=== PATIENT | female | born 1990 | race Caucasian/White ===

== ENCOUNTER 2018-01-21 10:26 | Outpatient (CLI) | payer MEDICAID ==
[~2018-01-21] VITALS: Ht 165.1 cm; Wt 101.4 kg
[~2018-01-21 10:26] MED LIST: CEPHALEXIN500 M1 PO; MACROBID 1100 MG/CAP PO; MOTRIN 600600 MG/TAB PO; NORCO 325 MG-51 TAB PO; PRENATAL1 TA1 PO; PYRIDIUM200 M1 PO; SENOKOT S 50 MG1 TAB PO
[2018-01-21 10:37] VITALS: BP 118/74; PULSE 76; TEMP 97.9
[2018-01-21 10:40] VITALS: BP 118/74; PULSE 76; TEMP 97.9
[2018-01-21] MEDS ORDERED: PRENATAL1 TA7 PO (10:40)
[2018-01-21] MEDS ORDERED: PROFERRIN ES12 MG PO (10:40)
[2018-01-21 11:40] VITALS: BP 112/72; PULSE 86
== END 2018-01-21 12:00 | disposition home or self-care (01) ==
LOC: LDRO 10:26
DX: O62.9 Abnormality of forces of labor, unspecified (principal); Z3A.39 39 weeks gestation of pregnancy

== ENCOUNTER 2018-01-29 06:23 | Inpatient (IN) | payer MEDICAID ==
[~2018-01-29] VITALS: Ht 167.6 cm; Wt 100.9 kg
[2018-01-29] VITALS (25 sets, daily range): BP systolic 96–139; BP diastolic 55–81; PULSE 54–95; TEMP 97.7–98.6
[~2018-01-29 06:23] MED LIST changes: +PRENATAL1 TA7 PO; +PROFERRIN ES12 MG PO
[2018-01-29 07:55] LABS: BASO % 0.3 % (0.0-2.0); EOS # 0.1 (0.0-0.7); GRAN # 6.8 (1.4-6.5); HEMOGLOBIN 11.3 g/dl (12.5-16.0); LYMPH # 2.7 (1.2-3.4); LYMPH % 25.8 % (20.0-51.0); MEAN CELL VOLUME 85 fl (80.0-100.0); MEAN CORPUSCULAR HEMOGLOBIN 28 pg (27.0-31.0); MEAN CORPUSCULAR HGB CONC 33 g/dl (33.0-37.0); MEAN PLATELET VOLUME 10.6 fl (7.4-10.4); MONO # 0.6 (0.1-0.6); MONO % 6.2 % (1.7-9.3); PLATELET COUNT 252 K/mm3 (130-400); RED BLOOD COUNT 4.02 M/mm3 (4.10-5.30); REDCELL DISTRIBUTION WIDTH-CV 12.9 % (11.5-14.5)
[2018-01-30 01:06] VITALS: BP 114/76; PULSE 69; TEMP 97.6
[2018-01-30 05:39] VITALS: BP 109/61; PULSE 63; TEMP 97.4
[2018-01-30 07:36] VITALS: BP 115/57; PULSE 65; TEMP 97.6
[2018-01-30] MEDS ORDERED: IBU600 MG PO (08:08)
[2018-01-30] MEDS ORDERED: PERCOCET 325 MG1 TA2 PO (08:09)
== END 2018-01-30 14:45 | disposition home or self-care (01) | DRG 775 ==
LOC: LDR 06:23 → OB 13:15
PROVIDERS: Obstetrics & Gynecology
PROC: 10E0XZZ Delivery of Products of Conception, External Approach (ICD-10-PCS; principal; 2018-01-29)
PROC: 3E033VJ Introduction of Other Hormone into Peripheral Vein, Percutaneous Approach (ICD-10-PCS; 2018-01-29)
PROC: 10907ZC Drainage of Amniotic Fluid, Therapeutic from Products of Conception, Via Natural or Artificial Opening (ICD-10-PCS; 2018-01-29)
PROC: 0HQ9XZZ Repair Perineum Skin, External Approach (ICD-10-PCS; 2018-01-29)
DX: O70.0 First degree perineal laceration during delivery (principal); O36.0930 Maternal care for other rhesus isoimmunization, third trimester, not applicable or unspecified; Z3A.40 40 weeks gestation of pregnancy; Z37.0 Single live birth; O99.02 Anemia complicating childbirth; O99.214 Obesity complicating childbirth; Z22.330 Carrier of Group B streptococcus
CPT/HCPCS: J2540; J2590; J7120

== ENCOUNTER 2018-02-12 12:50 | Emergency (ER) | payer SELFPAY ==
[~2018-02-12] VITALS: Ht 165.1 cm; Wt 95.9 kg
[~2018-02-12 12:50] MED LIST changes: +IBU600 MG PO; +PERCOCET 325 MG1 TA2 PO
[2018-02-12 12:56] VITALS: BP 132/89; PULSE 66; TEMP 98.7
[2018-02-12 13:17] LABS: COLLECTION METHOD CLEAN CATCH
[2018-02-12 13:31] LABS: PH 7 (5-8); SQUAMOUS EPITHELIAL 0-2 /hpf; URINE APPEARANCE Clear; URINE BACTERIA None Seen /hpf; URINE BILIRUBIN Negative (NEGATIVE); URINE BLOOD 1+ (NEGATIVE); URINE COLOR Yellow; URINE GLUCOSE Negative (NEGATIVE); URINE KETONE Negative (NEGATIVE); URINE LEUKOCYTE ESTERASE Negative (NEGATIVE); URINE NITRATE Negative (NEGATIVE); URINE PROTEIN(semi-quant) Negative (NEGATIVE); URINE RBC 0-2 /hpf
[2018-02-12] MEDS ORDERED: LIDODERM 5% PATC1 EA TP (13:54)
== END 2018-02-12 14:08 | disposition home or self-care (01) ==
LOC: COL.ER 12:50
PROVIDERS: Physician Assistant
DX: O90.89 Other complications of the puerperium, not elsewhere classified (principal); R10.11 Right upper quadrant pain